=== PATIENT | female | born 1950 | race Caucasian/White ===

== ENCOUNTER → 2023-09-26 12:31 | Outpatient (BNVA) | payer MEDICARE, SELFPAY | PROVIDERS: Family Provider Internal Medicine Infectious Disease; PCP Clinical Nurse Specialist Adult Health; Visit Provider Clinical Nurse Specialist Adult Health | DX: E11.8 Type 2 diabetes mellitus with unspecified complications (principal); E78.5 Hyperlipidemia, unspecified; E55.9 Vitamin D deficiency, unspecified; I10 Essential (primary) hypertension; M1A.9XX0 Chronic gout, unspecified, without tophus (tophi) | CPT/HCPCS: 80053; 80061; 81000; 82306; 83036; 85025 ==

== ENCOUNTER → 2023-10-09 12:00 | Outpatient (BNVA) | payer MEDICARE, SELFPAY | PROVIDERS: Family Provider Internal Medicine Infectious Disease; PCP Clinical Nurse Specialist Adult Health; Visit Provider Clinical Nurse Specialist Adult Health | DX: R53.83 Other fatigue (principal); R42 Dizziness and giddiness | CPT/HCPCS: 81000; 87086 ==

== ENCOUNTER 2023-12-26 11:59 | Emergency (ER) | payer MEDICARE, MEDICAID, SELFPAY ==
[2023-12-26 12:02] VITALS: BP 178/81; PULSE 66; RESP 18; TEMP 36.8; O2SAT 97; BMI 35.4
--- NOTE | 2023-12-26 12:42 | CT_ITS ---
WS: [id number] CT HEAD NONCONTRAST HISTORY: Possible stroke TECHNIQUE: Contiguous axial imaging performed through the brain in 2.5 mm imaging. Bone and soft tiss ue windows. Sagittal and coronal reformats reviewed. All CT scans at [facility] use at least one of these dose optimization techniques: automated exposure control; mA and/or kV adjustment per pa tient size (includes targeted exams where dose is matched to clinical indication); or iterative recon struction. DLP: 1029.78 mGy.cm COMPARISON: None available. No acute intracranial hemorrhage, midline shift or mass effect. Moderate atrophy and advanced small vessel ischemic disease is contiguous throughout the white matter . Mild cerebellar atrophy. Ventricles: Normal size with no hydrocephalus. Paranasal sinuses: As visualized are clear. Mastoid air cells: Well pneumatized. Calvarium and scalp: Skull is intact with no soft tissue edema or swelling. CT/CT head wo con* [id number] IMPRESSION: 1. No acute intracranial hemorrhage or edema. 2. Moderate volume loss and atrophy with advanced small vessel ischemic diseas e.
--- NOTE | 2023-12-26 12:59 | ED_ITS ---
HPI - Neuro Symptoms/Deficit 2 General: Chief Complaint: Neuro Symptoms/Deficit Stated Complaint: sent over possible stroke systems Time Seen by Provider: 12/26/23 12:39 History of Present Illness: 73-year-old female with a history of gou t, diabetes, hypertension and hyperlipidemia who presents emergency room with concern for stroke. Symptoms started yesterday. She said briefly she could not walk at all and was weak on her left side. She had very slurred speech. Some point she fell. By the time family got her to get dressed to come to the emergency room symptoms had abated mostly. She still has some difficulty walking today. Also some mild visual defects she says. Related Data Home Medications Medication Instructions Recorded Confirmed blood sugar diagnostic (OneTouch #10 ea 09/26/23 12/26/23 Verio test strips) blood-glucose meter (OneTouch #1 ea 09/26/23 12/26/23 Verio Flex Meter) lisinopril 40 mg tablet 40 mg PO DAILY 09/26/23 12/26/23 pen needle, diabetic 31 gauge x #1,200 ea 09/26/23 12/26/23 3/16 (TechLITE Pen Needle) atorvastatin 20 mg tablet 20 mg PO QPM 12/26/23 12/26/23 insulin glargine-yfgn 100 unit/mL 12 unit SUBCUT BEDTIME 12/26/23 12/26/23 (3 mL) subcutaneous pen (Semglee (insulin glargine-yfgn) Pen) semaglutide 2 mg/dose (8 mg/3 mL) 2 mg SUBCUT Q7D 12/26/23 12/26/23 subcutaneous pen injector (Ozempic) Previous Rx's Medication Instructions Recorded CPAP Mask, tubing and all other #1 ea 09/26/23 supplies for CPAP allopurinol 100 mg tablet 100 mg PO DAILY #90 tabs 09/26/23 amlodipine 5 mg tablet 5 mg PO DAILY #90 tabs 09/26/23 aspirin 81 mg tablet,delayed 81 mg PO DAILY #90 tabs 09/26/23 release (Adult Aspirin Regimen) clonidine HCl 0.1 mg tablet 0.1 mg PO Q12H 90 days #180 tabs 09/26/23 metformin 1,000 mg tablet 1,000 mg PO BIDWMEAL 90 days #180 09/26/23 tabs metoprolol tartrate 100 mg tablet 100 mg PO BID 90 days #180 tabs 09/26/23 pregabalin 100 mg capsule 100 mg PO Q8H 90 days #270 caps 09/26/23 cefdinir 300 mg capsule 300 mg PO BID 7 days #14 caps 12/26/23 Allergies Allergy/AdvReac Type Severity Reaction Status Date / Time No Known Allergies Allergy Verified 12/26/23 12:02 Review of Systems 2 Narrative: Constitutional symptoms: Negative except as documented in HPI. Skin symptoms: Negative except as documented in HPI. Eye symptoms: Negative except as documented in HPI. ENMT symptoms: Negative except as documented in HPI. Respiratory symptoms: Negative except as documented in HPI. Cardiovascular symptoms: Negative except as documented in HPI. Gastrointestinal symptoms: Negative except as documented in HPI. Genitourinary symptoms: Negative except as documented in HPI. Musculoskeletal symptoms: Negative except as documented in HPI. Neurologic symptoms: Negative except as documented in HPI. Psychiatric symptoms: Negative except as documented in HPI. Endocrine symptoms: Negative except as documented in HPI. PFSH ED 2 PFSH: Medical History FRANCISCA (obstructive sleep apnea) Wears CPAP part of the time Memory deficit moved in with daughter. She does not like driving. Generalized osteoarthritis Seasonal allergies Vitamin D deficiency Hyperlipidemia Gout Essential hypertension Diabetic neuropathy Type 2 diabetes mellitus with complication Surgical History Hx of cholecystectomy Family History Other Cancer Diabetes Hypertension Denies family history of Clotting disorder Dementia Anesthesia complication Bleeding disorder Social History Smoking and tobacco/nicotine status: never used tobacco/nicotine Quit status (tobacco/nicotine): has quit using Former quit date comment: quit when she was very young before 1973 Alcohol intake: never Substance/Drug Use: never Household members: family and children Housing: House Marital status: / Number of children: 5 Current occupational status: retired Physical Exam 2 Narrative: EXAM NARRATIVE: General: Alert, no acute distress. Skin: Warm, dry. Head: Normocephalic, atraumatic. Neck: Supple, trachea midline. Eye: Extraocular movements are intact. Ears, nose, mouth and throat: mucosa moist. Cardiovascular: Regular, Normal peripheral perfusion. Respiratory: Lungs are clear to auscultation, respirations are non-labored, breath sounds are equal, Symmetrical chest wall expansion. Gastrointestinal: Soft, Nontender, Non distended Musculoskeletal: Normal ROM, no deformity. Neurological: Alert and oriented, No focal neurological deficit observed. Psychiatric: Cooperative, appropriate mood & affect. Course 2 Vital Signs: Vital signs: Vital Signs Temperature 98.3 F 12/26/23 12:02 Pulse Rate 67 12/26/23 13:48 Respiratory Rate 18 12/26/23 12:02 Blood Pressure 170/81 12/26/23 13:48 Pulse Oximetry 96 12/26/23 13:48 MDM - Neuro Symptoms/Deficit Medical Decision Making Medical decision making: Differential diagnosis for patient with focal neurologic deficit(s) includes but not limited to and based on the above HPI, review of systems and physical exam: ischemic stroke, hemorrhagic stroke and embolic stroke secondary to atrial fibrillation), TIA, Carlson's palsey, metabolic encephalopathy with previous stroke. Orders placed to evaluate differential diagnosis based on the above differential, HPI and physical exam CT head: No acute intracranial process. no intracranial hemorrhage, no evidence of infarct. no evidence of acute fracture.This was reviewed and interpreted by myself the ER physician. Lab Review: Laboratory results were reviewed and interpreted by myself the emergency room physician. No leukocytosis. No anemia. BUN and creatinine are slightly elevated over baseline at 42 and 1.6. Urinalysis shows a urinary tract infection. I reviewed the patient's medical record. Reexamination: Patient seems to be at her baseline. She ambulates to the bathroom without her walker that she usually uses. Family says she is back to her baseline as well. No increased work of breathing. Assessment and plan: Urinary tract infection Delirium Dehydration -IV Rocephin and IV fluids in the emergency room. - Discharged home - Discussed findings and plan with patient. Answered any questions. - All laboratory values were reviewed and interpreted personally by myself, the ER physician - All imaging was reviewed and interpreted personally by myself, the ER physician. - Evaluation and treatment of this problem were appropriate in the emergency setting Lab Data 12/26/23 13:14 12/26/23 13:[address] 12/26/23 12:42 IMPRESSION: 1. No acute intracranial hemorrhage or edema. 2. Moderate volume loss and atrophy with advanced small vessel ischemic disease. Laboratory Results WBC 7.08 10^3/uL (3.29-11.43) 12/26/23 13:14 RBC 4.41 10^6/uL (3.85-5.65) 12/26/23 13:14 Hgb 13.70 g/dL (11.27-16.99) 12/26/23 13:14 Hct 42.7 % (36-47) 12/26/23 13:14 MCV 96.8 fl (85-98) 12/26/23 13:14 MCH 31.1 pg (27-33) 12/26/23 13:14 MCHC 32.1 g/dL (30-55) 12/26/23 13:14 RDW 12.4 % (12.1-15.1) 12/26/23 13:14 Plt Count 264 10^3/cmm (157-399) 12/26/23 13:14 MPV 9.4 fL (7.4-10.4) 12/26/23 13:14 Neut % (Auto) 67.7 % 12/26/23 13:14 Lymph % (Auto) 24.7 % 12/26/23 13:14 Lipscomb % (Auto) 5.9 % 12/26/23 13:14 Eos % (Auto) 0.8 % 12/26/23 13:14 Baso % (Auto) 0.6 % 12/26/23 13:14 Neut # (Auto) 4.79 10^3/uL (1.8-7.7) 12/26/23 13:14 Lymph # (Auto) 1.8 10^3/uL (0.8-4.8) 12/26/23 13:14 Lipscomb # (Auto) 0.4 10^3/uL (0.2-0.9) 12/26/23 13:14 Eos # (Auto) 0.1 10^3/uL (0.0-0.8) 12/26/23 13:14 Baso # (Auto) 0.0 10^3/uL (0.0-0.1) 12/26/23 13:14 Nucleated RBC % (auto) 0 % 12/26/23 13:14 Nucleated RBCs # 0.0 /100WBC 12/26/23 13:14 PT 12.00 SECONDS (12.1-14.9) L 12/26/23 13:14 INR 0.86 (0.8-1.2) 12/26/23 13:14 APTT 26.3 SECONDS (23.9-36.7) 12/26/23 13:14 Sodium 140 mmol/L (136-145) 12/26/23 13:14 Potassium 4.4 mmol/L (3.5-5.1) 12/26/23 13:14 Chloride 101 mmol/L (98-107) 12/26/23 13:14 Carbon Dioxide 24 mmol/L (22-29) 12/26/23 13:14 Anion Gap 19.4 (5-19) H 12/26/23 13:14 BUN 42 mg/dL (8-23) H 12/26/23 13:14 Creatinine 1.6 mg/dL (0.5-0.9) H 12/26/23 13:14 GFR Calculation Not Reportable 12/26/23 13:14 Glucose 117 mg/dL (65-115) H 12/26/23 13:14 Calculated Osmolality 302 mOsm/kg (285-295) H 12/26/23 13:14 Calcium 9.4 mg/dL (8.5-10.5) 12/26/23 13:14 Total Bilirubin 0.6 mg/dL (0.15-1.2) 12/26/23 13:14 AST 41 U/L (0-32) H 12/26/23 13:14 ALT 21 U/L (0-33) 12/26/23 13:14 Alkaline Phosphatase 130 U/L (35-105) H 12/26/23 13:14 Troponin T Baseline 14 ng/L (0-10) H 12/26/23 13:14 Total Protein 7.3 g/dL (6.6-8.7) 12/26/23 13:14 Albumin 4.5 g/dL (3.5-5.2) 12/26/23 13:14 Globulin 2.8 g/dL (1.3-4.6) 12/26/23 13:14 Urine Color Yellow (Yellow) 12/26/23 13:05 Urine Appearance Clear (CLEAR) 12/26/23 13:05 Urine pH 6.5 (5-7) 12/26/23 13:05 Ur Specific [place] 1.011 (1.005-1.030) 12/26/23 13:05 Urine Protein Negative (Negative) 12/26/23 13:05 Urine Glucose (UA) Negative (Normal) 12/26/23 13:05 Urine Ketones Negative (Negative) 12/26/23 13:05 Urine Blood Negative (Negative) 12/26/23 13:05 Urine Nitrate Negative (Negative) 12/26/23 13:05 Urine Bilirubin Negative (Negative) 12/26/23 13:05 Urine Urobilinogen 1.0 mg/dL (Negative) 12/26/23 13:05 Ur Leukocyte Esterase 1+ (Negative) A 12/26/23 13:05 Urine RBC 0-2 /hpf (0-2) 12/26/23 13:05 Urine WBC 21-50 /hpf (0-5) H 12/26/23 13:05 Ur Squamous Epith Cells 0-5 /hpf (0-5) 12/26/23 13:05 Amorphous Sediment Not Reportable 12/26/23 13:05 Urine Bacteria Trace /hpf (NONE) 12/26/23 13:05 Hyaline Casts 1.62 /lpf 12/26/23 13:05 All radiology interpretation(s) finalized by discharge Discharge Plan Discharge Patient Disposition: Home Clinical Impression: Urinary tract infection, Delirium Condition: Stable Prescriptions: New cefdinir 300 mg capsule 300 mg PO BID 7 Days Qty: 14 0RF No Action lisinopril 40 mg tablet 40 mg PO DAILY (DME) pen needle, diabetic [TechLITE Pen Needle] 31 gauge x 3/16 needle See Rx Instructions .ROUTE .MEDSUPPLY Qty: 1200 Rx Instructions: As directed 1 needle every week (DME) OneTouch Verio test strips Strip See Rx Instructions .ROUTE .MEDSUPPLY Qty: 10 Rx Instructions: As directed, test once daily (DME) blood-glucose meter [OneTouch Verio Flex meter[place] [facility] [place] Instructions .ROUTE .MEDSUPPLY Qty: 1 Rx Instructions: As directed test once daily allopurinol 100 mg tablet 100 mg PO DAILY Qty: 90 3RF amlodipine 5 mg tablet 5 mg PO DAILY Qty: 90 3RF aspirin [Adult Aspirin Regimen] 81 mg tablet,delayed release (DR/EC) 81 mg PO DAILY Qty: 90 3RF clonidine HCl 0.1 mg tablet 0.1 mg PO Q12H 90 Days Qty: 180 3RF metoprolol tartrate 100 mg tablet 100 mg PO BID 90 Days Qty: 180 3RF pregabalin 100 mg capsule 100 mg PO Q8H 90 Days Qty: 270 0RF (DME) CPAP Mask, tubing and all other supplies for CPAP See Rx Instructions .ROUTE .MEDSUPPLY Qty: 1 0RF Rx Instructions: As directed metformin 1,000 mg tablet 1,000 mg PO BIDWMEAL 90 Days Qty: 180 3RF Semglee(insulin glarg-yfgn)Pen 100 unit/mL (3 mL) insulin pen 12 unit SUBCUT BEDTIME atorvastatin 20 mg tablet 20 mg PO QPM Ozempic 2 mg/dose (8 mg/3 mL) pen injector 2 mg SUBCUT Q7D Rx Instructions: Sunday Discharge Orders: Discharge ED (Routine); Ordered 12/26/23 Ordered By: Jillian Fry Referrals: Kal Robbins MD [Family Provider] - Darryl Albrecht NP [Primary Care Provider] - Discharge Diet: Usual diet Discharge Activity: Resume usual activity Patient Instructions: Urinary Tract Infection in Older Adults (ED) Activity Restrictions/Additional Instructions: Thank you for choosing [facility] for your healthcare needs today. Please realize this is an emergency room and that we are providing you with a medical screening exam and this may not be complete and all inclusive of all the testing and or work up that you may need to determine your ailment or severity of your illness. You have been screened and evaluated and felt safe for discharge. Health conditions do change or evolve sometimes and as such it is important that you follow up with your Primary Doctor to be re checked, 3-5 days is a general good time frame for follow up. You are always welcome to return to the ED for re assessment if your symptoms are worsening or you have new concerns Coding Level of Care Code ED Home Management Supervisor for Beverly Herman
[2023-12-26 13:26] LABS: Basophils % 0.6 %; Eosinophils # 0.1 10^3/uL (0.0-0.8); Eosinophils % 0.8 %; Hematocrit 42.7 % (36-47); Lymphocytes # 1.8 10^3/uL (0.8-4.8); Lymphocytes % 24.7 %; Mean Corpuscular HGB Conc 32.1 g/dL (30-55); Mean Corpuscular Hemoglobin 31.1 pg (27-33); Mean Corpuscular Volume 96.8 fl (85-98); Mean Platelet Volume 9.4 fL (7.4-10.4); Monocytes # 0.4 10^3/uL (0.2-0.9); Monocytes % 5.9 %; Neutrophils # 4.79 10^3/uL (1.8-7.7); Neutrophils % 67.7 %; Nucleated Red Blood Cells % 0 %; Platelet Count 264 10^3/cmm (157-399); Red Blood Count 4.41 10^6/uL (3.85-5.65); Red Cell Distribution Width 12.4 % (12.1-15.1); White Blood Count 7.08 10^3/uL (3.29-11.43)
[2023-12-26 13:28] LABS: Bilirubin Urine Negative (Negative); Blood Urine Negative (Negative); Glucose Urine UA Negative (Normal); Ketones Urine Negative (Negative); Leukocyte Esterase Urine 1+ (Negative); Nitrate Urine Negative (Negative); Protein Urine Negative (Negative); Specific Gravity, Urine 1.011 (1.005-1.030); Urine Appearance Clear (CLEAR); Urine Color Yellow (Yellow); pH Urine 6.5 (5-7)
[2023-12-26 13:30] LABS: Bacteria Urine Trace /hpf; Hyaline Casts Urine 1.62 /lpf; RBC Urine 0-2 /hpf (0-2); Squamous Epithelial Cell Urine 0-5 /hpf (0-5); WBC Urine 21-50 /hpf (0-5)
[2023-12-26 13:33] LABS: Add Urine Culture? Yes
[2023-12-26 13:38] LABS: INR 0.86 (0.8-1.2)
[2023-12-26 13:39] LABS: Partial Thromboplastin Time 26.3 SECONDS (23.9-36.7)
[2023-12-26 13:44] LABS: Alanine Aminotransferase 21 U/L (0-33); Albumin Level 4.5 g/dL (3.5-5.2); Alkaline Phosphatase 130 U/L (35-105); Anion Gap 19.4 (5-19); Aspartate Amino Transferase 41 U/L (0-32); Blood Urea Nitrogen 42 mg/dL (8-23); Calcium 9.4 mg/dL (8.5-10.5); Carbon Dioxide 24 mmol/L (22-29); Chloride 101 mmol/L (98-107); Creatinine Clr Calc Pharmacy 33.4815; Globulin 2.8 g/dL (1.3-4.6); Glucose 117 mg/dL (65-115); Osmolality Calculated 302 mOsm/kg (285-295); Potassium 4.4 mmol/L (3.5-5.1); Sodium 140 mmol/L (136-145); Total Bilirubin 0.6 mg/dL (0.15-1.2); Total Protein 7.3 g/dL (6.6-8.7); Troponin(5th) Baseline 14 ng/L (0-10)
--- NOTE | 2023-12-26 13:44 | ECG_ITS ---
[facility] Test Date: 2023-12-26 Pat Name: Ro Sanon Department: Room: Gender: Female Systems Analyst Developer: : 1950 Requested By: Jillian Spencer Order Number: [id number] La MD: Jennie Crowley M.D. Measurements Intervals [place] Rate: 69 P: 5 OK: 154 QRS: 78 QRSD: 101 T: 26 QT: 398 QTc: 428 Interpretive Statements SINUS RHYTHM LOW QRS VOLTAGE IN PRECORDIAL LEADS [QRS DEFLECTION < 1.0 mV IN CHEST LEADS] PATTERN CONSISTENT WITH PULMONARY DISEASE No previous ECG available for comparison Electronically Signed On 12-27-2023 0:16:44 CDT by Jennie Crowley M.D. [id number]
[2023-12-26 13:48] VITALS: BP 170/81; PULSE 67; O2SAT 96
[2023-12-26] MEDS: cefTRIAXone 1,000 mg SDV 1000 MG IVP (13:59)
[2023-12-26] MEDS: sodium chloride 0.9% 1,000 ML 999 ML IV (14:04)
[2023-12-26 15:07] VITALS: BP 203/73; PULSE 69; O2SAT 98
== END 2023-12-26 15:08 | disposition home or self-care (01) ==
PROVIDERS: Emergency Provider Emergency Medicine; PCP Clinical Nurse Specialist Adult Health
DX: N39.0 Urinary tract infection, site not specified (principal); R41.0 Disorientation, unspecified; Z79.82 Long term (current) use of aspirin; Z79.84 Long term (current) use of oral hypoglycemic drugs; Z79.4 Long term (current) use of insulin; Z87.891 Personal history of nicotine dependence; E78.5 Hyperlipidemia, unspecified; I10 Essential (primary) hypertension; E11.40 Type 2 diabetes mellitus with diabetic neuropathy, unspecified
CPT/HCPCS: 36415; 70450; 80053; 81001; 84484; 85025; 85610; 85730; 87077; 87086; 87186; 93005; 96374; 99285; J0696; J7030

== ENCOUNTER → 2024-01-24 08:58 | Outpatient (BNVA) | payer MEDICARE, MEDICAID, SELFPAY | PROVIDERS: PCP Clinical Nurse Specialist Adult Health; Visit Provider Clinical Nurse Specialist Adult Health | DX: E11.8 Type 2 diabetes mellitus with unspecified complications (principal) | CPT/HCPCS: 83036; 84550 ==

== ENCOUNTER 2024-06-10 12:05 | Emergency (ER) | payer MEDICARE, MEDICAID, SELFPAY ==
[2024-06-10 12:08] VITALS: BMI 30.1
--- NOTE | 2024-06-10 12:10 | XRR_ITS ---
PROCEDURE INFORMATION: Exam: XR Chest Exam date and time: 06/10/2024 12:13 PM Age: 74 years old Clinical indication: Cough; Additional info: Psych TECHNIQUE: Imaging protocol: Radiologic exam of the chest. Views: 1 view. Total images: 2174 COMPARISON: No relevant prior studies available. FINDINGS: Lungs: Benign granulomatous disease of the lung is noted. Pleural spaces: There is blunting of the left costophrenic angle, likely indicating a small pleural effusion versus chronic pleural thickening. Heart/Mediastinum: Unremarkable. No cardiomegaly. Vasculature: Mild atherosclerotic disease burden is evident. Bones/joints: Old left rib fractures are evident. Soft tissues: Soft tissue anchor in the left humeral head. Organs: Surgical clips are present in the right upper quadrant which are suggestive of prior cholecystectomy. XR/XR chest 1V portable [id number] IMPRESSION: There is blunting of the left costophrenic angle, likely indicating a small pleural effusion versus chronic pleural thickening.
--- NOTE | 2024-06-10 12:10 | ECG_ITS ---
[facility] Test Date: 2024-06-10 Pat Name: Ro Sanon Department: Room: Gender: Female Pourer Bull Ladle: : 1950 Requested By: Don Meehan Order Number: [id number] La MD: Arash Santizo M.D. Measurements Intervals [place] Rate: 80 P: 76 WV: 147 QRS: 10 QRSD: 92 T: 62 QT: 361 QTc: 419 Interpretive Statements SINUS RHYTHM Compared to ECG 12/26/2023 13:44:15 No significant changes Electronically Signed On 06-12-2024 22:02:59 SORTER PRICER by Arash Santizo M.D. [email or web address]
--- NOTE | 2024-06-10 12:16 | W.ED.PSYCHS ---
HPI - Psych General: Chief Complaint: Psychiatric Symptoms Stated Complaint: 96 hold Time Seen by Provider: 06/10/24 12:10 Source: EMS Mode of arrival: EMS Limitations: no limitations History of Present Illness: 74-year-old female who is here with police for being on a 96-hour hold patient has a history dementia lives with family had been wandering off in the [place] then became combative with family send placed her in a 96-hour hold. Patient states that she just got upset today she answers most my questions appropriately. Denies any SI. Related Data Home Medications ?Medication ?Instructions ?Recorded ?Confirmed blood-glucose meter (OneTouch #1 ea 09/26/23 06/10/24 Verio Flex Meter) atorvastatin 20 mg tablet 20 mg PO QPM 12/26/23 06/10/24 lisinopril 10 mg tablet 10 mg PO DAILY 06/10/24 06/10/24 metoprolol tartrate 50 mg tablet 50 mg PO BID 06/10/24 06/10/24 pregabalin 75 mg capsule 75 mg PO BEDTIME 06/10/24 06/10/24 semaglutide 1 mg/dose (4 mg/3 mL) 1 mg SUBCUT Q7D 06/10/24 06/10/24 subcutaneous pen injector (MoVoxx) Previous Rx's ?Medication ?Instructions ?Recorded CPAP Mask, tubing and all other #1 ea 09/26/23 supplies for CPAP aspirin 81 mg tablet,delayed 81 mg PO DAILY #90 tabs 09/26/23 release (Adult Aspirin Regimen) clonidine HCl 0.1 mg tablet 0.1 mg PO Q12H 90 days #180 tabs 09/26/23 metformin 1,000 mg tablet 1,000 mg PO BIDWMEAL 90 days #180 09/26/23 tabs allopurinol 100 mg tablet 100 mg PO DAILY #90 tabs 01/24/24 amlodipine 5 mg tablet 5 mg PO DAILY #90 tabs 01/24/24 blood sugar diagnostic (OneTouch #50 ea 01/24/24 Verio test strips) insulin glargine-yfgn 100 unit/mL 12 unit (0.12 mL) SUBCUT BEDTIME 01/24/24 (3 mL) subcutaneous pen (Aleidaglee #15 mL (insulin glargine-yfgn) Pen) pen needle, diabetic 31 gauge x #1,200 ea 03/20/2407/20 (TechLITE Pen Needle) Allergies Allergy/AdvReac Type Severity Reaction Status Date / Time No Known Allergies Allergy Verified 01/24/24 08:33 Review of Systems Const: Denies: fever(s), chills, body aches or change in appetite ENMT: Denies: throat pain or dental pain Card: Denies: chest pain Resp: Denies: dyspnea GI: Denies: abdominal pain, nausea, vomiting or diarrhea Musc: Denies: neck pain or back pain Skin/Breast: Denies: rash Neuro: Denies: headache(s) Psych: Reports: irritability PFSH ED PFSH: Medical History FRANCISCA (obstructive sleep apnea) Wears CPAP part of the time Memory deficit moved in with daughter. She does not like driving. Generalized osteoarthritis Seasonal allergies Vitamin D deficiency Hyperlipidemia Gout Essential hypertension Diabetic neuropathy Type 2 diabetes mellitus with complication Surgical History Hx of cholecystectomy Family History Other Cancer Diabetes Hypertension Denies family history of Clotting disorder Dementia Anesthesia complication Bleeding disorder Social History Smoking and tobacco/nicotine status: never used tobacco/nicotine Quit status (tobacco/nicotine): has quit using Former quit date comment: quit when she was very young before 1973 Alcohol intake: never Substance/Drug Use: never Household members: family and children Housing: House Marital status: / Number of children: 5 Current occupational status: retired Physical Exam Const: COMMON NORMALS: no acute distress and healthy appearing HENMT: COMMON NORMALS: normocephalic and atraumatic HEAD & SCALP: normocephalic and atraumatic Eye: COMMON NORMALS: Equal, round and reactive pupils present and EOMs intact bilaterally PUPIL: Yes Equal, round and reactive pupils present Neck/C-Spine: COMMON NORMALS: full ROM and supple Chest: COMMONS NORMALS: normal inspection of the chest and normal palpation of entire chest wall Resp: COMMON NORMALS: normal respiratory effort, No retractions, No use of accessory muscles and clear to auscultation bilaterally AUSCULTATION: clear to auscultation bilaterally Cardio: COMMON NORMALS: regular rate, regular rhythm and No murmurs present (Cardio) RATE: regular rate RHYTHM: regular rhythm GI: COMMON NORMALS: Normal to inspection, nondistended, normoactive bowel sounds present, Soft to palpation, non-tender and no masses PALPATION: Yes Soft to palpation Extremity: COMMON NORMALS: normal to inspection and full ROM Neuro: COMMON NORMALS: moves all extremities and no focal motor deficits Psych: COMMON NORMALS: mental status grossly normal, Normal thought process present and cooperative THOUGHT PROCESS: Normal thought process present Skin: COMMON NORMALS: no rashes or lesions noted and no wounds GENERAL SKIN EXAM: no rashes or lesions noted Course Vital Signs: Vital signs: Vital Signs Temperature 98.0 F 06/10/24 12:28 Pulse Rate 82 06/10/24 18:16 Respiratory Rate 16 06/10/24 12:28 Blood Pressure 169/76 06/10/24 12:28 Pulse Oximetry 96 06/10/24 18:16 Oxygen Delivery Me thod Room Air 06/10/24 18:[address] [facility] - Psych Medical Decision Making Patient presents here with acute psychosis she is medically cleared excepted to [place] will transfer there for higher level of care of geriatric psych Medical Records I reviewed the patient's medical records. Lab Data I reviewed the patient's lab results. 06/10/24 12:21 06/10/24 12:21 Radiology Impressions Chest X-Ray 06/10/24 12:10 IMPRESSION: There is blunting of the left costophrenic angle, likely indicating a small pleural effusion versus chronic pleural thickening. Laboratory Results WBC 3.58 10^3/uL (3.29-11.43) 06/10/24 12:21 RBC 3.41 10^6/uL (3.85-5.65) L 06/10/24 12:21 Hgb 10.80 g/dL (11.27-16.99) L 06/10/24 12:21 Hct 34.5 % (36-47) L 06/10/24 12:21 MCV 101.2 fl (85-98) H 06/10/24 12:21 MCH 31.7 pg (27-33) 06/10/24 12:21 MCHC 31.3 g/dL (30-55) 06/10/24 12:21 RDW 14.6 % (12.1-15.1) 06/10/24 12:21 Plt Count 249 10^3/cmm (157-399) 06/10/24 12:21 MPV 8.7 fL (7.4-10.4) 06/10/24 12:21 Neut % (Auto) 60.6 % 06/10/24 12:21 Lymph % (Auto) 28.8 % 06/10/24 12:21 [place] % (Auto) 9.2 % 06/10/24 12:21 Eos % (Auto) 0.8 % 06/10/24 12:21 Baso % (Auto) 0.6 % 06/10/24 12:21 Neut # (Auto) 2.17 10^3/uL (1.8-7.7) 06/10/24 12:21 Lymph # (Auto) 1.0 10^3/uL (0.8-4.8) 06/10/24 12:21 [place] # (Auto) 0.3 10^3/uL (0.2-0.9) 06/10/24 12:21 Eos # (Auto) 0.0 10^3/uL (0.0-0.8) 06/10/24 12:21 Baso # (Auto) 0.0 10^3/uL (0.0-0.1) 06/10/24 12:21 Nucleated RBC % (auto) 0 % 06/10/24 12:21 Nucleated RBCs # 0.0 /100WBC 06/10/24 12:21 Sodium 139 mmol/L (136-145) 06/10/24 12:21 Potassium 4.4 mmol/L (3.5-5.1) 06/10/24 12:21 Chloride 103 mmol/L (98-107) 06/10/24 12:21 Carbon Dioxide 23 mmol/L (22-29) 06/10/24 12:21 Anion Gap 17.4 (5-19) 06/10/24 12:21 BUN 18 mg/dL (8-23) 06/10/24 12:21 Creatinine 1.2 mg/dL (0.5-0.9) H 06/10/24 12:21 GFR Calculation Not Reportable 06/10/24 12:21 Glucose 151 mg/dL (65-115) H 06/10/24 12:21 Calculated Osmolality 293 mOsm/kg (285-295) 06/10/24 12:21 Calcium 8.9 mg/dL (8.5-10.5) 06/10/24 12:21 Total Bilirubin 0.4 mg/dL (0.15-1.2) 06/10/24 12:21 AST 37 U/L (0-32) H 06/10/24 12:21 ALT 15 U/L (0-33) 06/10/24 12:21 Alkaline Phosphatase 178 U/L (35-105) H 06/10/24 12:21 Total Protein 6.5 g/dL (6.6-8.7) L 06/10/24 12:21 Albumin 3.8 g/dL (3.5-5.2) 06/10/24 12:21 Globulin 2.7 g/dL (1.3-4.6) 06/10/24 12:21 Salicylates < 0.3 mg/dL (3-10) L 06/10/24 12:21 Urine Opiates Screen Negative ng/mL (Negative) 06/10/24 12:44 Acetaminophen < 5.0 ug/mL (10-30) L 06/10/24 12:21 Ur Barbiturates Screen Negative ng/mL (Negative) 06/10/24 12:44 Ur Phencyclidine Scrn Negative ng/mL (Negative) 06/10/24 12:44 Ur Amphetamines Screen Negative ng/mL (Negative) 06/10/24 12:44 U Benzodiazepines Scrn Negative ng/mL (Negative) 06/10/24 12:44 Urine Cocaine Screen Negative ng/mL (Negative) 06/10/24 12:44 U Marijuana (THC) Screen Negative ng/mL (Negative) 06/10/24 12:44 Ethyl Alcohol < 10 mg/dL (0-10) 06/10/24 12:21 Coronavirus (PCR) Negative (Negative) 06/10/24 14:33 Influenza A (PCR) Negative (Negative) 06/10/24 14:33 Influenza Type B (PCR) Negative (Negative) 06/10/24 14:33 RSV (PCR) Negative (Negative) 06/10/24 14:33 No radiology studies performed this visit EKG Data EKG 1: I personally reviewed and interpreted this EKG as follows: EKG interpretation date: 06/10/24 EKG interpretation time: 12:42 Interpretation: nsr hr [address] elevation qrs [id number] Discharge Plan Discharge Patient Disposition: Xfer Psychiatric Hosp Clinical Impression: Acute psychosis Condition: Stable Referrals: Darryl Albrecht [employer] [Primary Care Provider] - Print Language: [place]se Coding Level of Care Code ED Marketing Production Coordinator for [facility]
[2024-06-10 12:28] VITALS: BP 169/76; PULSE 80; RESP 16; TEMP 36.7; O2SAT 96
[2024-06-10 12:44] LABS: Basophils % 0.6 %; Eosinophils % 0.8 %; Hematocrit 34.5 % (36-47); Lymphocytes % 28.8 %; Mean Corpuscular HGB Conc 31.3 g/dL (30-55); Mean Corpuscular Hemoglobin 31.7 pg (27-33); Mean Corpuscular Volume 101.2 fl (85-98); Mean Platelet Volume 8.7 fL (7.4-10.4); Monocytes # 0.3 10^3/uL (0.2-0.9); Monocytes % 9.2 %; Neutrophils # 2.17 10^3/uL (1.8-7.7); Neutrophils % 60.6 %; Nucleated Red Blood Cells % 0 %; Platelet Count 249 10^3/cmm (157-399); Red Blood Count 3.41 10^6/uL (3.85-5.65); Red Cell Distribution Width 14.6 % (12.1-15.1); White Blood Count 3.58 10^3/uL (3.29-11.43)
[2024-06-10 12:55] LABS: Acetaminophen < 5.0 ug/mL (10-30); Alanine Aminotransferase 15 U/L (0-33); Albumin Level 3.8 g/dL (3.5-5.2); Alcohol Level < 10 mg/dL (0-10); Alkaline Phosphatase 178 U/L (35-105); Anion Gap 17.4 (5-19); Aspartate Amino Transferase 37 U/L (0-32); Blood Urea Nitrogen 18 mg/dL (8-23); Calcium 8.9 mg/dL (8.5-10.5); Carbon Dioxide 23 mmol/L (22-29); Chloride 103 mmol/L (98-107); Creatinine Clr Calc Pharmacy 40.4416; Globulin 2.7 g/dL (1.3-4.6); Glucose 151 mg/dL (65-115); Osmolality Calculated 293 mOsm/kg (285-295); Potassium 4.4 mmol/L (3.5-5.1); Salicylate < 0.3 mg/dL (3-10); Sodium 139 mmol/L (136-145); Total Bilirubin 0.4 mg/dL (0.15-1.2); Total Protein 6.5 g/dL (6.6-8.7)
--- NOTE | 2024-06-10 13:08 | PC.NURSE ---
96-hour involuntary hold rights reviewed with patient. She verbalizes understanding and denies any questions or concerns at this time. Copy left at bedside with the patient.
--- NOTE | 2024-06-10 13:09 | PC.PHAR ---
Pt states her son Silke Sanon helped with her morning medications today. Pt does not know exactly what she takes. Med rec verified via [facility] in [place] and [place]. Last fill dates and day supply were added.
[2024-06-10 14:31] LABS: Amphetamines Screen Urine Negative (Negative); Barbiturates Screen Urine Negative (Negative); Benzodiazepines Screen Urine Negative (Negative); Cocaine Screen Urine Negative (Negative); Opiate Screen Urine Negative (Negative); PCP Screen Urine Negative (Negative); THC Screen Urine Negative (Negative)
[2024-06-10 15:24] LABS: Covid PCR NEGATIVE (Negative); Influenza A NEGATIVE (Negative); Influenza B NEGATIVE (Negative); Respiratory Syncytial Virus Ce NEGATIVE (Negative)
[2024-06-10 18:16] VITALS: PULSE 82; O2SAT 96
[2024-06-10 18:56] LABS: Thyroid Stimulating Hormone 1.81 uIU/mL (0.27-4.20)
[2024-06-10 20:10] VITALS: BP 158/75; PULSE 88; RESP 18; O2SAT 94
[2024-06-10 20:25] VITALS: BP 158/75; PULSE 89; O2SAT 95
--- NOTE | 2024-06-10 20:53 | PC.NURSE ---
accepting facility was called regarding pt leaving and given an eta of 3 hours.
== END 2024-06-10 20:45 ==
PROVIDERS: Emergency Provider Emergency Medicine; PCP Clinical Nurse Specialist Adult Health
DX: F23 Brief psychotic disorder (principal); Z11.52 Encounter for screening for COVID-19; Z87.891 Personal history of nicotine dependence; E11.40 Type 2 diabetes mellitus with diabetic neuropathy, unspecified; E78.5 Hyperlipidemia, unspecified
CPT/HCPCS: 36415; 71045; 80053; 80306; 80307; 84443; 85025; 87637; 93005; 99285

== ENCOUNTER 2024-06-30 13:01 | Emergency (ER) | payer MEDICARE, MEDICAID, SELFPAY ==
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
[2024-06-30 13:26] VITALS: BMI 31.8
[2024-06-30 13:41] LABS: Basophils # 0.1 10^3/uL (0.0-0.1); Basophils % 0.7 %; Eosinophils # 0.1 10^3/uL (0.0-0.8); Eosinophils % 0.8 %; Hematocrit 37.9 % (36-47); Lymphocytes # 2.5 10^3/uL (0.8-4.8); Lymphocytes % 33.9 %; Mean Corpuscular HGB Conc 30.6 g/dL (30-55); Mean Corpuscular Volume 104.7 fl (85-98); Mean Platelet Volume 8.9 fL (7.4-10.4); Monocytes # 0.5 10^3/uL (0.2-0.9); Monocytes % 7.1 %; Neutrophils # 4.18 10^3/uL (1.8-7.7); Neutrophils % 57.4 %; Nucleated Red Blood Cells % 0 %; Platelet Count 296 10^3/cmm (157-399); Red Blood Count 3.62 10^6/uL (3.85-5.65); Red Cell Distribution Width 13.4 % (12.1-15.1); White Blood Count 7.29 10^3/uL (3.29-11.43)
--- NOTE | 2024-06-30 13:50 | PC.PHAR ---
Pt states she only uses [facility] in [place] for medications. Pt also has asked us to call [facility] and [facility] in [place] and tell them not to let [facility] get her money or she won't have anything to live on.
--- NOTE | 2024-06-30 13:53 | ECG_ITS ---
[facility]24-[facility]30 Pat Name: Ro Sanon Department: Room: Gender: Female Kettle Firer: : 1950 Requested By: Elyse Prado Order Number: [id number] Reading MD: CRISTY CORNEJO Measurements Intervals [place] Rate: 75 P: 77 WI: 153 QRS: 32 QRSD: 97 T: 52 QT: 385 QTc: 430 Interpretive Statements SINUS RHYTHM Compared to ECG 06/10/2024 12:42:37 No significant changes Electronically Signed On 07-01-2024 23:48:04 DIRECTOR OF STAFF DEVELOPMENT by CRISTY CORNEJO [email or web address]
[2024-06-30 13:54] VITALS: BP 156/75; PULSE 77; RESP 16; O2SAT 99
[2024-06-30 14:08] LABS: Alanine Aminotransferase 17 U/L (0-33); Albumin Level 3.9 g/dL (3.5-5.2); Alkaline Phosphatase 164 U/L (35-105); Anion Gap 20.4 (5-19); Aspartate Amino Transferase 33 U/L (0-32); Blood Urea Nitrogen 38 mg/dL (8-23); Calcium 8.6 mg/dL (8.5-10.5); Carbon Dioxide 20 mmol/L (22-29); Chloride 99 mmol/L (98-107); Creatinine Clr Calc Pharmacy 17.2219; Globulin 3.4 g/dL (1.3-4.6); Glucose 115 mg/dL (65-115); Osmolality Calculated 290 mOsm/kg (285-295); Potassium 4.4 mmol/L (3.5-5.1); Sodium 135 mmol/L (136-145); Thyroid Stimulating Hormone 2.87 uIU/mL (0.27-4.20); Total Bilirubin 0.4 mg/dL (0.15-1.2); Total Protein 7.3 g/dL (6.6-8.7)
[2024-06-30 14:11] LABS: Acetaminophen < 5.0 ug/mL (10-30); Alcohol Level < 10 mg/dL (0-10); Salicylate < 0.3 mg/dL (3-10)
[2024-06-30 16:30] VITALS: BP 148/68; PULSE 85; O2SAT 97
[2024-06-30] MEDS: sodium chloride 0.9% 1,000 ML 999 ML IV (16:46)
[2024-06-30 17:56] LABS: Influenza A NEGATIVE (Negative); Influenza B NEGATIVE (Negative); Respiratory Syncytial Virus Ce NEGATIVE (Negative); SARS-CoV-2 PCR NEGATIVE (Negative)
[2024-06-30 18:41] LABS: Bilirubin Urine Negative (Negative); Blood Urine Trace (Negative); Glucose Urine UA Negative (Normal); Ketones Urine Negative (Negative); Leukocyte Esterase Urine 3+ (Negative); Nitrate Urine Negative (Negative); Protein Urine Trace (Negative); Specific Gravity, Urine 1.005 (1.005-1.030); Urine Appearance Cloudy (CLEAR); Urine Color Yellow (Yellow); Urobilinogen Urine 0.2 mg/dL (Negative); pH Urine 5.5 (5-7)
[2024-06-30 18:48] LABS: Amphetamines Screen Urine Negative (Negative); Barbiturates Screen Urine Negative (Negative); Benzodiazepines Screen Urine Negative (Negative); Cocaine Screen Urine Negative (Negative); Opiate Screen Urine Negative (Negative); PCP Screen Urine Negative (Negative); THC Screen Urine Negative (Negative)
[2024-06-30 18:55] LABS: Add Urine Culture? Yes; Add Urine Microscopic? YES; Bacteria Urine 2+ /hpf; RBC Urine RARE /hpf (0-2); UA Manual Slide Review YES; UA Slide Review UA Slide Review Perf; WBC Urine 25-40 /hpf (0-5)
[2024-06-30 20:00] VITALS: BP 137/63; PULSE 73; RESP 18; O2SAT 94
[2024-06-30 20:42] VITALS: BP 137/63; PULSE 73; O2SAT 96
== END 2024-06-30 20:30 ==
PROVIDERS: Physician Assistant; Emergency Provider Physician Assistant; PCP Clinical Nurse Specialist Adult Health
DX: F23 Brief psychotic disorder (principal); Z11.52 Encounter for screening for COVID-19; E78.5 Hyperlipidemia, unspecified; E11.40 Type 2 diabetes mellitus with diabetic neuropathy, unspecified; Z87.891 Personal history of nicotine dependence
CPT/HCPCS: 36415; 80053; 80306; 80307; 81001; 84443; 85025; 87077; 87086; 87186; 87637; 93005; 96360; 99285; J7030